=== PATIENT | female | born 1960 | race Caucasian/White ===

== ENCOUNTER 2018-05-08 15:06 | Emergency (ER) | payer OTHER ==
[2018-05-08 15:30] LABS: ADD MAN DIFF? NO
[2018-05-08 15:33] LABS: WHITE BLOOD COUNT 16.7 10^3/ul (4.8-10.8)
[2018-05-08 15:33] LABS: BASOPHIL # 0.1 10^3/ul (0.0-0.1); BASOPHILS % 0.3 % (0.0-2.0); EOSINOPHILS # 0.1 10^3/ul (0.0-0.5); EOSINOPHILS % 0.4 % (0.0-7.0); HEMATOCRIT 36.2 % (37.0-47.0); HEMOGLOBIN 11.7 g/dl (12.0-16.0); LYMPHOCYTES # 2.8 10^3/ul (0.8-2.9); LYMPHOCYTES % 16.5 % (15.0-51.0); MEAN CORPUSCULAR HEMOGLOBIN 31.1 pg (29.0-33.0); MEAN CORPUSCULAR HGB CONC 32.3 g/dl (32.0-37.0); MEAN CORPUSCULAR VOLUME 96.3 fl (82.0-101.0); MONOCYTE # 1.5 10^3/ul (0.3-0.9); MONOCYTES % 8.7 % (0.0-11.0); NEUTROPHIL # 12.3 10^3/ul (1.6-7.5); NEUTROPHILS % 73.5 % (39.0-77.0); PLATELET COUNT 688 10^3/UL (140-415); RED BLOOD COUNT 3.76 10^6/ul (4.20-5.40); RED CELL DISTRIBUTION WIDTH 13.9 % (11.5-14.5)
[2018-05-08] MEDS: SOD CHLORIDE 0.9% 1,000 ML IV (15:33)
[2018-05-08 15:52] LABS: INR 0.95; PROTIME 12.8 Sec (11.9-14.9)
[2018-05-08 16:12] LABS: AMYLASE 76 U/L (11-123)
[2018-05-08 16:12] LABS: LIPASE 44 U/L (23-300)
[2018-05-08 16:23] LABS: TROPONIN-I < 0.012 ng/ml (0.000-0.120)
[2018-05-08 18:00] LABS: ADD UMIC YES; UR ASCORBIC ACID NEGATIVE (NEGATIVE); UR BACTERIA FEW /HPF (NONE SEEN); UR BILIRUBIN (Dip) NEGATIVE (NEGATIVE); UR BLOOD (Dip) NEGATIVE (NEGATIVE); UR CLARITY SLIGHTLY CLOUDY (CLEAR); UR COLOR YELLOW (YELLOW); UR GLUCOSE (Dip) NEGATIVE (NEGATIVE); UR KETONES (Dip) NEGATIVE (NEGATIVE); UR LEUKOCYTE ESTERASE (Dip) TRACE Leu/ul (NEGATIVE); UR MUCUS FEW /HPF (NONE SEEN); UR NITRITE (Dip) NEGATIVE (NEGATIVE); UR RBC 1 /HPF (0-5); UR SQUAMOUS EPITHELIAL CELL FEW /HPF (FEW); UR TOTAL PROTEIN (Dip) NEGATIVE (NEGATIVE); UR UROBILINOGEN (Dip) NEGATIVE (NEGATIVE); UR WBC 9 /HPF (0-5)
[2018-05-08 18:02] LABS: ALANINE AMINOTRANSFERASE 15 IU/L (13-69); ALBUMIN 3.1 g/dl (3.3-4.9); ALBUMIN/GLOBULIN RATIO 1.03; ALKALINE PHOSPHATASE 82 IU/L (42-121); ANION GAP 13 (8-16); ASPARTATE AMINO TRANSFERASE 27 IU/L (15-46); BILIRUBIN,INDIRECT 0.3 mg/dl (0-1.1); BILIRUBIN,TOTAL 0.3 mg/dl (0.2-1.3); BLOOD UREA NITROGEN 11 mg/dl (7-20); CALCIUM 9.3 mg/dl (8.4-10.2); CARBON DIOXIDE 20 mmol/L (21-31); CHLORIDE 112 mmol/L (97-110); CREATININE 0.57 mg/dl (0.44-1.00); GLUCOSE 203 mg/dl (70-220); POTASSIUM 4.4 mmol/L (3.5-5.1); SODIUM 141 mmol/L (135-144); TOTAL PROTEIN 6.1 g/dl (6.1-8.1)
[2018-05-08] MEDS: CEFTRIAXONE 1 GM/50 ML (PMX) 50 ML IVPB (18:54)
== END 2018-05-08 20:16 | disposition home or self-care (01) ==
LOC: E/R 15:06
DX: R55 Syncope and collapse (principal); N30.00 Acute cystitis without hematuria; E11.9 Type 2 diabetes mellitus without complications; I10 Essential (primary) hypertension; Z79.4 Long term (current) use of insulin; Z85.07 Personal history of malignant neoplasm of pancreas
CPT/HCPCS: 36415; 71045; 80053; 81001; 82150; 83690; 84484; 85025; 85610; 85730; 87086; 93005; 96374; 99285-25